=== PATIENT | male | born 1990 | race Native Hawaiian/Other Pacific Islander ===

== ENCOUNTER 2019-01-02 11:23 | Emergency (ER) | payer OTHER ==
[~2019-01-02] VITALS: Ht 185.4 cm; Wt 127.0 kg
[2019-01-02 11:38] VITALS: TEMP 98.8
[2019-01-02 13:32] VITALS: BP 112/68
== END 2019-01-02 13:32 | disposition home or self-care (01) ==
LOC: ED 11:23
DX: R51 Headache (principal)
CPT/HCPCS: 99282

== ENCOUNTER 2019-02-28 21:46 | Emergency (ER) | payer OTHER ==
[~2019-02-28] VITALS: Ht 185.4 cm; Wt 116.1 kg
[2019-02-28 23:02] VITALS: BP 134/85; TEMP 98.1
== END 2019-02-28 23:04 | disposition home or self-care (01) ==
LOC: ED 21:46
DX: M54.5 Low back pain (principal); G89.29 Other chronic pain
CPT/HCPCS: 96372; 99283; J1885; J2360

== ENCOUNTER 2020-08-30 19:56 | Emergency (ER) | payer OTHER ==
[~2020-08-30] VITALS: Ht 182.9 cm; Wt 117.9 kg
[2020-08-30 21:10] LABS: PLATELET COUNT 215 K/uL (142-355)
[2020-08-30 21:26] LABS: POTASSIUM 3.6 mmol/L (3.6-5.2)
[2020-08-30 22:15] VITALS: BP 128/83; TEMP 98.4
== END 2020-08-30 22:15 | disposition home or self-care (01) ==
LOC: ED 20:07
PROVIDERS: Emergency Medicine Emergency Medical Services
DX: R42 Dizziness and giddiness (principal); S80.02XA Contusion of left knee, initial encounter; W01.0XXA Fall on same level from slipping, tripping and stumbling without subsequent striking against object, initial encounter; Y92.89 Other specified places as the place of occurrence of the external cause
CPT/HCPCS: 80053; 82550; 85027; 93005; 96360; 99284

== ENCOUNTER 2020-08-31 10:36 | Emergency (ER) | payer OTHER ==
[~2020-08-31] VITALS: Ht 182.9 cm; Wt 117.9 kg
[2020-08-31 10:42] VITALS: BP 149/100
[2020-08-31 12:15] VITALS: TEMP 98
== END 2020-08-31 12:15 | disposition home or self-care (01) ==
LOC: ED 10:36
DX: J06.9 Acute upper respiratory infection, unspecified (principal); R42 Dizziness and giddiness; Z20.828 Contact with and (suspected) exposure to other viral communicable diseases; F17.210 Nicotine dependence, cigarettes, uncomplicated
CPT/HCPCS: 87502; 87635; 87651; 93005; 99283; U0003

== ENCOUNTER 2021-07-05 15:25 | Emergency (ER) | payer OTHER ==
[~2021-07-05] VITALS: Ht 184.2 cm; Wt 116.2 kg
[2021-07-05 15:30] VITALS: TEMP 98.9
[2021-07-05 16:50] VITALS: BP 120/79
== END 2021-07-05 16:50 | disposition home or self-care (01) ==
LOC: ED 15:25
DX: J06.9 Acute upper respiratory infection, unspecified (principal); B34.9 Viral infection, unspecified; Z20.822 Contact with and (suspected) exposure to COVID-19; F17.210 Nicotine dependence, cigarettes, uncomplicated
CPT/HCPCS: 87502; 87635; 87651; 99283; U0003

== ENCOUNTER 2023-01-28 19:57 | Emergency (ER) | payer OTHER ==
[~2023-01-28] VITALS: Ht 184.2 cm; Wt 113.4 kg
[2023-01-28 20:23] VITALS: BP 149/88; TEMP 98.3
== END 2023-01-28 20:23 | disposition home or self-care (01) ==
LOC: ED 19:57
DX: K12.1 Other forms of stomatitis (principal); K05.10 Chronic gingivitis, plaque induced; F17.210 Nicotine dependence, cigarettes, uncomplicated
CPT/HCPCS: 99282

== ENCOUNTER 2023-03-12 05:54 | Emergency (ER) | payer OTHER ==
[~2023-03-12] VITALS: Ht 184.2 cm; Wt 113.4 kg
[2023-03-12 06:56] VITALS: BP 140/84; TEMP 98.8
== END 2023-03-12 06:56 | disposition home or self-care (01) ==
LOC: ED 05:54
DX: K08.89 Other specified disorders of teeth and supporting structures (principal); K02.9 Dental caries, unspecified
CPT/HCPCS: 99281

== ENCOUNTER 2023-04-20 14:58 | Emergency (ER) | payer OTHER ==
[~2023-04-20] VITALS: Ht 184.2 cm; Wt 116.1 kg
[2023-04-20 15:00] VITALS: BP 122/71; TEMP 97.9
== END 2023-04-20 15:54 | disposition home or self-care (01) ==
LOC: ED 14:58
DX: S60.413A Abrasion of left middle finger, initial encounter (principal); W45.8XXA Other foreign body or object entering through skin, initial encounter; Y92.89 Other specified places as the place of occurrence of the external cause; Z23 Encounter for immunization
CPT/HCPCS: 90471; 90715; 99282